=== PATIENT | male | born 1985 | race African-American/Black ===

== ENCOUNTER 2021-07-21 08:42 | Inpatient (IN) ==
[2021-07-21 10:44] LABS: Bilirubin,Urine Negative (Negative); Blood, Urine Negative (Negative); Glucose,Urine (UA) Negative (Negative); Ketones,Urine 20 mg/dL (Negative); Mucus,Urine Many /LPF (Occasional); Nitrite,Urine Negative (Negative); Protein,Urine Negative; RBC,Urine 1 /HPF (0-4); Squamous Epithelial Cell,Urine Occasional /HPF (0-10); Urine Appearance CLEAR (Clear); Urine Color Yellow (Yellow); Urine Specific Gravity 1.029 (1.001-1.035); Urine Urobilinogen < 2.0 EU/DL (0.2-1.0)
[2021-07-21 11:00] LABS: Barbiturates Screen,Urine Negative (Negative); Benzodiazepines Screen,Urine Negative (Negative); Cannabinoid Screen,Urine Positive (Negative); Opiate Screen,Urine Negative (Negative); Phencyclidine Screen,Urine Negative (Negative)
[2021-07-21 11:47] LABS: Basophils % 0.5 % (0.0-0.8); Eosinophils # 0.1 10*3/uL (0.0-0.87); Eosinophils % 1.1 % (0.00-10.9); Hematocrit 42.5 VOL% (42.0-52.0); Hemoglobin 13.6 GM/DL (14.0-18.0); Immature Granulocytes % 0.5 %; Immature Granulocytes Absolute 0.02 #; Lymphocytes # 1.3 10*3/uL (1.4-4.0); Lymphocytes % 28.4 % (21.2-54.2); Mean Corpuscular Volume 82.4 FL (87-102); Mean Platelet Volume 10.1 FL (9.6-12.0); Monocytes % 12.8 % (1.7-12.7); Neutrophils % 56.7 % (38.7-73.9); Platelet Count 254 T/CUMM (130-400); Red Blood Count 5.16 MC/CUMM (3.8-5.5); Red Cell Distribution Width 15.1 % (9.3-17.3); White Blood Count 4.4 T/CUMM (4-12)
[2021-07-21 12:14] LABS: Alanine Aminotransferase 26 U/L (16-61); Albumin 2.9 G/DL (3.4-5.0); Alkaline Phosphatase 72 U/L (45-117); Aspartate Amino Transferase 20 U/L (0-37); Bilirubin,Total < 0.39 MG/DL (0.20-1.00); Blood Urea Nitrogen 14 MG/DL (7-18); Calcium 8.1 MG/DL (8.5-10.1); Carbon Dioxide 24 MMOL/L (21-32); Estimated Glom Filtration Rate 169 ML/MIN; Glucose 84 MG/DL (74-106); Osmolality,Calculated 257.9 MOS/KG (273-304); Potassium 3.7 MMOL/L (3.5-5.1); Sodium 129 MMOL/L (136-145); Total Protein 7.1 G/DL (6.4-8.2)
[2021-07-21] MEDS ORDERED: KETOROLAC 30 MG/1 ML VIAL IV STA (18:13)
[2021-07-21] MEDS ORDERED: SODIUM CHLORIDE 0.9% 1,000 ML IV STA (18:13)
[2021-07-21] MEDS ORDERED: ONDANSETRON 4 MG/2 ML VIAL IV STA (18:17)
[2021-07-21] MEDS ORDERED: GLUCAGON 1 MG VIAL IM PRN (20:04)
[2021-07-21] MEDS ORDERED: NICOTINE 21 MG/24 HR PATCH TRANSDERM PRN (20:04)
[2021-07-21] MEDS ORDERED: ACETAMINOPHEN 325 MG TABLET PO PRN (20:04)
[2021-07-21] MEDS ORDERED: DEXTROSE 50% 25 GM/50 ML VIAL IV PRN (20:04)
[2021-07-21] MEDS ORDERED: ONDANSETRON 4 MG/2 ML VIAL IV PRN (20:04)
[2021-07-21] MEDS ORDERED: POLYETHYLENE GLYCOL POWDER 255 GM BOTTLE PO ONE (20:12)
[2021-07-21] MEDS ORDERED: LACTULOSE 20 GM/30 ML UDCUP PO PRN (20:12)
[2021-07-21] MEDS ORDERED: VANCOMYCIN INJ 1,000 MG in SODIUM CHLORIDE 0.9% 250 ML IV ONE (20:13)
[2021-07-21 21:08] LABS: Thyroid Stimulating Hormone 1.49 uIU/ml (0.358-3.74)
[2021-07-21] MEDS: SODIUM CHLORIDE 0.9% 1,000 ML IV SCH (21:16)
[2021-07-21] MEDS: DOCUSATE SODIUM 100 MG CAPSULE PO SCH (21:16)
[2021-07-21] MEDS: ENOXAPARIN 40 MG/0.4 ML SYRINGE SUBCUT SCH (21:16)
[2021-07-21 21:20] LABS: AFP Tumor < 2.2 NG/ML (0-8); Cancer Antigen 19-9 12.44 U/ML (0-35)
[2021-07-22] MEDS: SODIUM CHLORIDE 0.9% 1,000 ML IV SCH (05:32)
[2021-07-22 06:04] LABS: Basophils % 0.7 % (0.0-0.8); Eosinophils # 0.2 10*3/uL (0.0-0.87); Eosinophils % 4.5 % (0.00-10.9); Hematocrit 42.7 VOL% (42.0-52.0); Hemoglobin 13.4 GM/DL (14.0-18.0); Immature Granulocytes % 0.5 %; Immature Granulocytes Absolute 0.02 #; Lymphocytes # 1.6 10*3/uL (1.4-4.0); Lymphocytes % 39.2 % (21.2-54.2); Mean Corpuscular HGB Conc 31.4 GM/DL (32-36); Mean Corpuscular Volume 83.2 FL (87-102); Mean Platelet Volume 10.5 FL (9.6-12.0); Monocytes % 18.2 % (1.7-12.7); Neutrophils % 36.9 % (38.7-73.9); Platelet Count 275 T/CUMM (130-400); Red Blood Count 5.13 MC/CUMM (3.8-5.5); Red Cell Distribution Width 15.3 % (9.3-17.3)
[2021-07-22 06:18] LABS: Bilirubin,Total 1.1 MG/DL (0.20-1.00); Osmolality,Calculated 278.5 MOS/KG (273-304); Potassium 3.5 MMOL/L (3.5-5.1); Total Protein 7.5 G/DL (6.4-8.2)
[2021-07-22 06:39] LABS: Eosinophils 4 % (0-10); Hypochromasia 1+; Lymphocytes 35 % (20-55); Microcytosis 1+; Segmented Neutrophils 47 % (50-85); Total Cells Counted 100
[2021-07-22 06:40] LABS: Platelet Estimate Normal
[2021-07-22] MEDS: PANTOPRAZOLE 40 MG TABLET PO SCH (10:05)
[2021-07-22] MEDS: DOCUSATE SODIUM 100 MG CAPSULE PO SCH ×2 (10:05→21:30)
[2021-07-22] MEDS: VANCOMYCIN INJ 1,250 MG in SODIUM CHLORIDE 0.9% 250 ML IV SCH ×2 (10:06→23:12)
[2021-07-22] MEDS: cefTRIAXone 2,000 MG in SODIUM CHLORIDE 0.9% 100 ML IV SCH (15:52)
[2021-07-22 17:22] LABS: PT Patient Result 11.4 SECS (10.5-12.0)
[2021-07-22] MEDS: GABAPENTIN 300 MG CAPSULE PO SCH (21:30)
[2021-07-22] MEDS: ENOXAPARIN 40 MG/0.4 ML SYRINGE SUBCUT SCH (21:31)
[2021-07-23 04:32] LABS: Basophils % 0.5 % (0.0-0.8); Eosinophils # 0.2 10*3/uL (0.0-0.87); Eosinophils % 5.5 % (0.00-10.9); Hematocrit 36.9 VOL% (42.0-52.0); Hemoglobin 11.7 GM/DL (14.0-18.0); Immature Granulocytes % 0.5 %; Immature Granulocytes Absolute 0.02 #; Lymphocytes # 1.4 10*3/uL (1.4-4.0); Lymphocytes % 36.2 % (21.2-54.2); Mean Corpuscular HGB Conc 31.7 GM/DL (32-36); Mean Corpuscular Volume 82.7 FL (87-102); Monocytes % 14.6 % (1.7-12.7); Neutrophils % 42.7 % (38.7-73.9); Platelet Count 231 T/CUMM (130-400); Red Blood Count 4.46 MC/CUMM (3.8-5.5); Red Cell Distribution Width 15.2 % (9.3-17.3)
[2021-07-23 04:52] LABS: Calcium 8.4 MG/DL (8.5-10.1); Osmolality,Calculated 276.4 MOS/KG (273-304); Potassium 3.8 MMOL/L (3.5-5.1)
[2021-07-23] MEDS: cefTRIAXone 2,000 MG in SODIUM CHLORIDE 0.9% 100 ML IV SCH (10:08)
[2021-07-23] MEDS ORDERED: MIDAZOLAM 2 MG/2 ML VIAL IV ONE (10:47)
[2021-07-23] MEDS ORDERED: fentaNYL 100 MCG/2 ML VIAL IV ONE (10:47)
[2021-07-23] MEDS ORDERED: DIAZEPAM 5 MG TABLET PO ONE (10:47)
[2021-07-23] MEDS: DOCUSATE SODIUM 100 MG CAPSULE PO SCH ×2 (10:52→21:18)
[2021-07-23] MEDS: PANTOPRAZOLE 40 MG TABLET PO SCH (10:53)
[2021-07-23] MEDS: GABAPENTIN 300 MG CAPSULE PO SCH ×3 (10:53→21:18)
[2021-07-23] MEDS: SODIUM CHLORIDE 0.45% 1,000 ML IV SCH (12:15)
[2021-07-23] MEDS: VANCOMYCIN INJ 1,250 MG in SODIUM CHLORIDE 0.9% 250 ML IV SCH ×2 (14:07→21:19)
[2021-07-23] MEDS: ENOXAPARIN 40 MG/0.4 ML SYRINGE SUBCUT SCH (21:18)
[2021-07-24] MEDS: PANTOPRAZOLE 40 MG TABLET PO SCH (10:03)
[2021-07-24] MEDS: DOCUSATE SODIUM 100 MG CAPSULE PO SCH ×2 (10:03→21:37)
[2021-07-24] MEDS: GABAPENTIN 300 MG CAPSULE PO SCH ×3 (10:03→21:37)
[2021-07-24] MEDS: cefTRIAXone 2,000 MG in SODIUM CHLORIDE 0.9% 100 ML IV SCH (10:10)
[2021-07-24] MEDS: VANCOMYCIN INJ 1,250 MG in SODIUM CHLORIDE 0.9% 250 ML IV SCH (11:29)
[2021-07-24] MEDS: SODIUM CHLORIDE 0.45% 1,000 ML IV SCH (13:50)
[2021-07-24] MEDS: VANCOMYCIN INJ 1,000 MG in SODIUM CHLORIDE 0.9% 250 ML IV SCH (15:46)
[2021-07-24] MEDS: ENOXAPARIN 40 MG/0.4 ML SYRINGE SUBCUT SCH (21:37)
[2021-07-25] MEDS: VANCOMYCIN INJ 1,000 MG in SODIUM CHLORIDE 0.9% 250 ML IV SCH ×4 (01:47→22:03)
[2021-07-25 06:22] LABS: Basophils % 0.7 % (0.0-0.8); Eosinophils # 0.3 10*3/uL (0.0-0.87); Eosinophils % 11.1 % (0.00-10.9); Hematocrit 38.1 VOL% (42.0-52.0); Hemoglobin 12.4 GM/DL (14.0-18.0); Immature Granulocytes % 0.3 %; Immature Granulocytes Absolute 0.01 #; Lymphocytes # 1.2 10*3/uL (1.4-4.0); Lymphocytes % 39.2 % (21.2-54.2); Mean Corpuscular HGB Conc 32.5 GM/DL (32-36); Mean Corpuscular Volume 81.8 FL (87-102); Mean Platelet Volume 9.8 FL (9.6-12.0); Monocytes % 14.7 % (1.7-12.7); Platelet Count 275 T/CUMM (130-400); Red Blood Count 4.66 MC/CUMM (3.8-5.5); White Blood Count 3.1 T/CUMM (4-12)
[2021-07-25 06:39] LABS: Calcium 8.9 MG/DL (8.5-10.1); Osmolality,Calculated 272.7 MOS/KG (273-304)
[2021-07-25 06:57] LABS: Eosinophils 8 % (0-10); Hypochromasia 1+; Lymphocytes 43 % (20-55); Segmented Neutrophils 33 % (50-85); Total Cells Counted 100
[2021-07-25 06:58] LABS: Microcytosis 1+; Ovalocytes Slight
[2021-07-25] MEDS: PANTOPRAZOLE 40 MG TABLET PO SCH (09:13)
[2021-07-25] MEDS: cefTRIAXone 2,000 MG in SODIUM CHLORIDE 0.9% 100 ML IV SCH (09:13)
[2021-07-25] MEDS: DOCUSATE SODIUM 100 MG CAPSULE PO SCH ×2 (09:13→20:56)
[2021-07-25] MEDS: GABAPENTIN 300 MG CAPSULE PO SCH ×3 (09:13→20:56)
[2021-07-25] MEDS: SODIUM CHLORIDE 0.45% 1,000 ML IV SCH (10:36)
[2021-07-25] MEDS: BENZTROPINE 1 MG TABLET PO SCH (14:34)
[2021-07-25] MEDS: ENOXAPARIN 40 MG/0.4 ML SYRINGE SUBCUT SCH (20:56)
[2021-07-26] MEDS: VANCOMYCIN INJ 1,000 MG in SODIUM CHLORIDE 0.9% 250 ML IV SCH ×3 (06:16→23:19)
[2021-07-26 06:32] LABS: Basophils % 0.8 % (0.0-0.8); Eosinophils # 0.4 10*3/uL (0.0-0.87); Eosinophils % 9.6 % (0.00-10.9); Hematocrit 40.9 VOL% (42.0-52.0); Hemoglobin 13.4 GM/DL (14.0-18.0); Immature Granulocytes % 0.3 %; Immature Granulocytes Absolute 0.01 #; Lymphocytes # 1.2 10*3/uL (1.4-4.0); Lymphocytes % 32.1 % (21.2-54.2); Mean Corpuscular HGB Conc 32.8 GM/DL (32-36); Mean Corpuscular Volume 82.1 FL (87-102); Mean Platelet Volume 10.8 FL (9.6-12.0); Monocytes % 14.6 % (1.7-12.7); Neutrophils % 42.6 % (38.7-73.9); Platelet Count 150 T/CUMM (130-400); Red Blood Count 4.98 MC/CUMM (3.8-5.5); White Blood Count 3.6 T/CUMM (4-12)
[2021-07-26 07:20] LABS: Calcium 9.3 MG/DL (8.5-10.1); Osmolality,Calculated 266.2 MOS/KG (273-304); Potassium 4.4 MMOL/L (3.5-5.1)
[2021-07-26] MEDS: DOCUSATE SODIUM 100 MG CAPSULE PO SCH ×2 (10:00→20:24)
[2021-07-26] MEDS: BENZTROPINE 1 MG TABLET PO SCH (10:00)
[2021-07-26] MEDS: cefTRIAXone 2,000 MG in SODIUM CHLORIDE 0.9% 100 ML IV SCH (10:00)
[2021-07-26] MEDS: GABAPENTIN 300 MG CAPSULE PO SCH ×3 (10:00→20:24)
[2021-07-26] MEDS: PANTOPRAZOLE 40 MG TABLET PO SCH (10:03)
[2021-07-26] MEDS: ENOXAPARIN 40 MG/0.4 ML SYRINGE SUBCUT SCH (20:24)
[2021-07-27] MEDS: VANCOMYCIN INJ 1,000 MG in SODIUM CHLORIDE 0.9% 250 ML IV SCH (06:34)
[2021-07-27 06:47] LABS: Basophils % 0.8 % (0.0-0.8); Eosinophils # 0.3 10*3/uL (0.0-0.87); Hematocrit 40.5 VOL% (42.0-52.0); Hemoglobin 13.4 GM/DL (14.0-18.0); Immature Granulocytes % 0.3 %; Immature Granulocytes Absolute 0.01 #; Lymphocytes # 1.1 10*3/uL (1.4-4.0); Lymphocytes % 28.4 % (21.2-54.2); Mean Corpuscular HGB Conc 33.1 GM/DL (32-36); Mean Corpuscular Volume 81.7 FL (87-102); Mean Platelet Volume 9.9 FL (9.6-12.0); Monocytes % 13.8 % (1.7-12.7); Neutrophils % 49.7 % (38.7-73.9); Platelet Count 334 T/CUMM (130-400); Red Blood Count 4.96 MC/CUMM (3.8-5.5); Red Cell Distribution Width 15.1 % (9.3-17.3)
[2021-07-27 07:07] LABS: Calcium 9.3 MG/DL (8.5-10.1); Osmolality,Calculated 272.8 MOS/KG (273-304); Potassium 4.1 MMOL/L (3.5-5.1)
[2021-07-27] MEDS: PANTOPRAZOLE 40 MG TABLET PO SCH (10:01)
[2021-07-27] MEDS: BENZTROPINE 1 MG TABLET PO SCH (10:01)
[2021-07-27] MEDS: GABAPENTIN 300 MG CAPSULE PO SCH ×2 (10:01→15:48)
[2021-07-27] MEDS: DOCUSATE SODIUM 100 MG CAPSULE PO SCH (10:01)
[2021-07-27] MEDS: cefTRIAXone 2,000 MG in SODIUM CHLORIDE 0.9% 100 ML IV SCH (10:20)
[2021-07-27 13:04] VITALS: BP 107/49
[2021-07-27] MEDS: SODIUM CHLORIDE 0.45% 1,000 ML IV SCH ×2 (14:15→14:16)
[2021-07-28] MEDS ORDERED: NICOTINE 21 MG/24 HR PATCH TRANSDERM SCH (09:00)
[2021-07-28 13:22] LABS: M. Tuberculosis PCR Result Negative (Negative); M. Tuberculosis PCR Source L2 Biopsy
== END 2021-07-27 16:48 | disposition home or self-care (01) | DRG 478 ==
LOC: N.ED 08:42 → N.EDINP 20:03 → SUATTDRO 20:03 → N.2W 21:05
PROVIDERS: ADMIT Internal Medicine; ATTEND Internal Medicine